=== PATIENT | male | born 1955 | race Caucasian/White ===

== ENCOUNTER 2023-05-19 11:16 | Outpatient (RCR) | payer BC, SELFPAY | END 2023-05-19 23:59 | disposition home or self-care (01) | LOC: CRHB 11:16 | PROVIDERS: ATTENDING PHYSICIAN Internal Medicine | DX: I25.10 Atherosclerotic heart disease of native coronary artery without angina pectoris (principal); Z95.5 Presence of coronary angioplasty implant and graft; I25.2 Old myocardial infarction | CPT/HCPCS: G0422; G0423 ==

== ENCOUNTER 2023-06-18 11:07 | Outpatient (RCR) | payer BC, SELFPAY | END 2023-06-18 23:59 | disposition home or self-care (01) | LOC: CRHB 11:07 | PROVIDERS: ATTENDING PHYSICIAN Internal Medicine | DX: Z95.5 Presence of coronary angioplasty implant and graft (principal); I25.10 Atherosclerotic heart disease of native coronary artery without angina pectoris | CPT/HCPCS: G0422; G0423 ==

== ENCOUNTER 2023-07-19 12:00 | Outpatient (RCR) | payer BC, SELFPAY | END 2023-07-19 23:59 | disposition home or self-care (01) | LOC: CRHB 12:00 | PROVIDERS: ATTENDING PHYSICIAN Internal Medicine | DX: I25.10 Atherosclerotic heart disease of native coronary artery without angina pectoris (principal); Z95.5 Presence of coronary angioplasty implant and graft | CPT/HCPCS: G0422; G0423 ==

== ENCOUNTER 2023-08-04 11:14 | Outpatient (RCR) | payer BC, SELFPAY | END 2023-08-04 23:59 | disposition home or self-care (01) | LOC: CRHB 11:14 | PROVIDERS: ATTENDING PHYSICIAN Internal Medicine | DX: I25.10 Atherosclerotic heart disease of native coronary artery without angina pectoris (principal); Z95.5 Presence of coronary angioplasty implant and graft; I10 Essential (primary) hypertension; Z79.82 Long term (current) use of aspirin | CPT/HCPCS: G0422; G0423 ==